=== PATIENT | male | born 1945 | race Caucasian/White ===

== ENCOUNTER 2023-08-12 04:35 | Emergency (ER) | payer MEDICARE, SELFPAY ==
[2023-08-12] VITALS (12 sets, daily range): BP systolic 122–136; BP diastolic 67–76; PULSE 46–54; RESP 11–16; TEMP 36.4; O2SAT 97–100
--- NOTE | ~2023-08-12 | CT_ITS ---
EXAMINATION: CT abdomen pelvis w con DATE: 08/12/2023 05:32 INDICATION: Upper abdominal pain TECHNIQUE: Computed tomography (CT) of the abdomen and pelvis was performed without intravenous contr ast. The dose-length product was 803.01 mGy-cm. Automated exposure control and iterative reconstructi on technique were employed. COMPARISON: None. FINDINGS: There is dependent atelectasis. Heart size normal. No significant pleural or pericardial ef fusion. Moderate gallbladder distention. There is subtle pericholecystic fatty infiltration. Findings suspicious for cholecystitis. No free air or free fluid. Moderate thoracic and lumbar spondylosis. F ocal fatty infiltration of the liver near the falciform ligament. There are multiple small low-densit y lesions in the kidneys, most likely benign cysts. Colonic diverticulosis without evidence for diver ticulitis. Normal appendix. Nonobstructive bowel pattern. IMPRESSION: 1. Moderate gallbladder distention with subtle pericholecystic fatty infiltration, suspicious for cho lecystitis. Clinically correlate. Reviewed, dictated and finalized at location A. IMPRESSION: 1. Moderate gallbladder distention with subtle pericholecystic fatty infiltrati on, suspicious for cholecystitis. Clinically correlate.
--- NOTE | 2023-08-12 04:41 | ECG_ITS ---
Measurements Intervals [place] Rate: 54 P: 89 NH: 196 QRS: -3 QRSD: 106 T: 28 QT: 434 QTc: 414 Interpretive Statements SINUS BRADYCARDIA NONSPECIFIC ST & T-WAVE ABNORMALITY- ANT/INF LEADS BORDERLINE ECG NO PREVIOUS ECG AVAILABLE FOR COMPARISON Electronically Signed On 08-12-2023 7:05:05 CDT by Mau Tamayo D.O.
[2023-08-12 04:53] LABS: Basophils Percent Auto 0.5 % (0.2-1.2); Eosinophils Absolute Auto 0.2 K/mm3 (0-0.3); Eosinophils Percent Auto 2.9 % (0-4.4); Hematocrit 38.4 % (42.0-52.0); Hemoglobin 12.5 g/dL (14.0-18.0); Immature Granulocyte Absolute 0.01 K/mm3 (0.00-0.031); Immature Granulocyte Percent A 0.2 % (0-0.5); Lymphocytes Absolute Auto 3.19 K/mm3 (0.9-3.2); Lymphocytes Percent Auto 48.3 % (18.3-44.2); Mean Corpuscular HGB Conc 32.6 g/dl (32-36); Mean Corpuscular Hemoglobin 29.6 pg (26-34); Mean Platelet Volume 9.4 fl (7.4-10.4); Monocytes Absolute Auto 0.6 K/mm3 (0.1-0.6); Monocytes Percent Auto 9.7 % (2.6-8.5); Neutrophils Absolute Auto 2.6 K/mm3 (1.3-6.7); Neutrophils Percent Auto 38.4 % (45.5-73.1); Platelet Count Result 222 k/mm3 (150-375); Red Blood Count 4.22 M/mm3 (4.6-6.20); White Blood Count 6.6 K/mm3 (4.5-10.0)
[2023-08-12 05:02] LABS: Alanine Aminotransferase 45 U/L (6-50); Albumin Level 4.2 g/dL (3.5-5.1); Alkaline Phosphatase 46 U/L (38-126); Anion Gap 9 mmol/L (8-16); Aspartate Amino Transferase 42 U/L (17-59); Bilirubin,Total 0.7 mg/dL (0.2-1.3); Blood Urea Nitrogen 28 mg/dL (9-20); Calcium 9.9 mg/dL (8.4-10.2); Carbon Dioxide 23 mmol/L (22-30); Chloride 105 mmol/L (98-107); Estimated CRCL calculation 48 ml/min; Estimated Glomerular Filt Rate 54; Glucose 115 mg/dL (65-110); Lipase 337 U/L (23-300); Potassium 3.5 mmol/L (3.4-5.0); Sodium 137 mmol/L (137-145)
--- NOTE | 2023-08-12 05:12 | ED.ABDPAIN ---
HPI - Abdominal Pain General Chief Complaint: Abdominal Pain Stated Complaint: abd pain Time Seen by Provider: 08/12/23 04:43 History of Present Illness HPI narrative: Patient is a 78-year-old male with a history of hypertension, hypothyroidism, hyperlipidemia presenting with abdominal pain. Patient states that he went to bed in his normal state of health. He awoke in the middle of the night with severe upper abdominal pain. States that it feels like a gas pain but he is unable to belch. EMS was called and give him a dose of IV morphine which brought his pain from an 8 to a 4. States that he feels nauseated but has not vomited. He denies chest pain, shortness of breath, palpitations, diaphoresis, lightheadedness, leg swelling. No fevers or chills. No diarrhea, constipation, dysuria, hematuria, flank pain. Related Data Home Medications Medication Instructions Recorded Confirmed amlodipine 5 mg tablet 5 mg PO DAILY 03/19/23 ezetimibe 10 mg tablet 10 mg PO DAILY 03/19/23 fenofibrate 160 mg tablet 160 mg PO DAILY 03/19/23 levothyroxine 200 mcg capsule 200 mcg PO DAILY 03/19/23 lisinopril 10 mg tablet 10 mg PO DAILY 03/19/23 magnesium 250 mg tablet 250 mg PO DAILY 03/19/23 metoprolol succinate 25 mg 25 mg PO DAILY 03/19/23 tablet,extended release 24 hr zinc amino acid chelate 50 mg mg PO 03/19/23 tablet Allergies Allergy/AdvReac Type Severity Reaction Status Date / Time No Known Allergies Allergy Verified 08/12/23 06:43 Review of Systems Review of Systems: All systems reviewed & are unremarkable except as noted in HPI and below PMFSH Social History Social History Smoking status: Never smoker Exam Narrative: GENERAL: Well-appearing and in no acute distress. Pleasant and cooperative HEAD: Normocephalic, atraumatic. EYES: PERRLA and EOMI. ENT: Grossly unremarkable NECK: Supple. CHEST: Clear to auscultation. No respiratory distress. HEART: Bradycardic, regular rhythm ABDOMEN: Soft, +RUQ/LUQ/epigastric tenderness, no guarding or rebound EXTREMITIES: Normal range of motion. No edema. SKIN: Warm, dry, no rash. NEURO: No focal deficits. Alert and oriented x3. PSYCH: Normal mood and affect. Course Vital Signs Vital signs: Vital Signs Temperature 97.5 F L 08/12/23 04:36 Pulse Rate 54 L 08/12/23 04:36 Respiratory Rate 16 08/12/23 04:36 Blood Pressure 129/76 08/12/23 04:36 Pulse Oximetry 100 08/12/23 04:36 Oxygen Delivery Room Air 08/12/23 04:36 Temperature 97.5 F L 08/12/23 04:36 Pulse Rate 47 L 08/12/23 07:30 Respiratory Rate 15 08/12/23 07:30 Blood Pressure 136/74 08/12/23 07:30 Pulse Oximetry 100 08/12/23 07:30 Oxygen Delivery Room Air 08/12/23 04:36 MDM - Abdominal Pain MDM Narrative Medical decision making narrative: Patient is a 78-year-old male presenting with upper abdominal pain. Vitals stable. Exam remarkable for the above. EKG per my interpretation shows sinus bradycardia, nonspecific T wave changes, no ST elevations or depressions. No priors for comparison. Blood work is unremarkable. No leukocytosis. No transaminitis. Normal alk phos. CT abdomen pelvis with subtle pericholecystic fatty infiltration concerning for possible cholecystitis. On reevaluation, the patient states that his symptoms have resolved. I spoke with Dr. Lockhart who states if his symptoms are controlled and he is tolerating p.o., he can be discharged with plans for close follow-up in the clinic. Patient and his are agreeable with this plan. We discussed a low-fat diet. We will send in for Vicodin and Zofran for symptomatic control. Appropriate return precautions given. Patient voiced understanding and is agreeable with plan. Discharged in stable condition. Differential Diagnosis Differential diagnosis: Likely abdominal pain, acute appendicitis, constipation, diverticulitis, gastroenteritis, pancre
[2023-08-12] MEDS: ONDANSETRON INJ 4 MG/2 ML VIAL IV PUSH (05:18)
[2023-08-12] MEDS: SODIUM CHLORIDE 0.9% IV 1,000 ML 999 ML IV CONT (05:18)
[2023-08-12 06:01] LABS: Troponin I < 0.012 ng/mL (0.000-0.034)
== END 2023-08-12 07:30 | disposition home or self-care (01) ==
PROVIDERS: Emergency Provider Emergency Medicine
DX: K80.50 Calculus of bile duct without cholangitis or cholecystitis without obstruction (principal); I10 Essential (primary) hypertension; E03.9 Hypothyroidism, unspecified; E78.5 Hyperlipidemia, unspecified
CPT/HCPCS: 36415; 74177; 80053; 83690; 84484; 85025; 93005; 96361; 96374; 99284; J2405; J7030; Q9967